=== PATIENT | female | born 2000 | race African-American/Black ===

== ENCOUNTER 2018-05-14 14:31 | Emergency (ER) | payer SELFPAY ==
[2018-05-14] MEDS ORDERED: Ketorolac Tromethamine 30 MG/ML VIAL ONE (15:07)
== END 2018-05-14 16:17 | disposition home or self-care (01) ==
LOC: ERS 14:31
DX: S29.011A Strain of muscle and tendon of front wall of thorax, initial encounter (principal); N64.4 Mastodynia; F41.9 Anxiety disorder, unspecified; X58.XXXA Exposure to other specified factors, initial encounter
CPT/HCPCS: 96372; J1885

== ENCOUNTER 2018-05-15 19:30 | Emergency (ER) | payer SELFPAY | END 2018-05-15 20:52 | disposition home or self-care (01) | LOC: ERS 19:30 | DX: N63.0 Unspecified lump in unspecified breast (principal); F41.9 Anxiety disorder, unspecified | CPT/HCPCS: 99283 ==

== ENCOUNTER 2018-10-25 17:41 | Emergency (ER) | payer SELFPAY ==
[2018-10-25] MEDS ORDERED: Ibuprofen 800 MG TAB ONE (17:53)
--- NOTE | 2018-10-25 18:03 | RAD ---
EXAM: 2 views of the right tibia/fibula HISTORY: Leg pain COMPARISON: None FINDINGS: There is no evidence of acute fracture or dislocation. No soft tissue swelling is seen. No degenerative changes are seen in the knee or ankle. IMPRESSION: No evidence of acute osseous abnormality.
== END 2018-10-25 18:24 | disposition home or self-care (01) ==
LOC: ERS 17:41
DX: S80.11XA Contusion of right lower leg, initial encounter (principal); F41.9 Anxiety disorder, unspecified; V43.62XA Car passenger injured in collision with other type car in traffic accident, initial encounter

== ENCOUNTER 2018-10-28 08:36 | Emergency (ER) | payer SELFPAY ==
[2018-10-28 09:57] LABS: Bacteria/HPF 1+ HPF (None Seen); Bilirubin Negative (Negative); Blood, Urine 1+ (Negative); Clarity Turbid (Clear); Glucose, Urine (Dipstick) Normal (Negative); Leukocyte Negative Leu/uL (Negative); Nitrite Negative (Negative); Protein, Urine (Dipstick) Negative (Neg-Trace); Squamous Epithelial 0-3 HPF (0-3); Urobilinogen Normal mg/dL (Less than 2); Yeast-Budding 2+ HPF (None Seen)
[2018-10-28 09:59] LABS: Pregnancy Test - Urine (BHCG) Negative (Negative); Pregu Control Background? CLEAR/WHITE (CLR/WHITE); Pregu Control Bar Appear? YES (CONTROL BAR); Specific Gravity 1.025 (1.002-1.036)
== END 2018-10-28 10:28 | disposition home or self-care (01) ==
LOC: ERS 08:36
DX: N93.9 Abnormal uterine and vaginal bleeding, unspecified (principal); M79.604 Pain in right leg; F41.9 Anxiety disorder, unspecified; V89.2XXA Person injured in unspecified motor-vehicle accident, traffic, initial encounter
CPT/HCPCS: 81003; 81025; 99284

== ENCOUNTER 2018-11-24 18:48 | Emergency (ER) | payer OTHER, SELFPAY ==
[2018-11-24] MEDS ORDERED: Ondansetron ODT 4 MG TAB ONE (19:29)
[2018-11-24 20:22] LABS: Bacteria/HPF 3+ HPF (None Seen); Bilirubin Negative (Negative); Blood, Urine Negative (Negative); Clarity Turbid (Clear); Glucose, Urine (Dipstick) Normal (Negative); Leukocyte 25 Leu/uL (Negative); Nitrite 2+ (Negative); Protein, Urine (Dipstick) 20 mg/dL (Neg-Trace); Urobilinogen 3 mg/dL (Less than 2)
[2018-11-24 20:25] LABS: Pregnancy Test - Urine (BHCG) Negative (Negative); Pregu Control Background? CLEAR/WHITE (CLR/WHITE); Pregu Control Bar Appear? YES (CONTROL BAR); Specific Gravity 1.026 (1.002-1.036)
[2018-11-24 21:13] LABS: ALT (SGPT) Less than 7 U/L (8-55); AST (SGOT) 13 U/L (5-34); Albumin 4.1 g/dL (3.5-5.0); Alkaline Phosphatase 52 U/L (40-150); Anion Gap 9 mmol/L (10-20); BUN (Urea Nitrogen) 12 mg/dL (7.0-18.7); Bilirubin, Total 0.6 mg/dL (0.2-1.2); Calc. Creatinine Clearance 0 mL/min (70-130); Calcium 9.2 mg/dL (7.8-10.44); Carbon Dioxide 26 mmol/L (22-29); Chloride 105 mmol/L (98-107); Estimated GFR-MDRD Greater than 90; Globulin 2.6 g/dL (2.4-3.5); Glucose 67 mg/dL (70-105); Lipase 17 U/L (8-78); Potassium 3.5 mmol/L (3.5-5.1); Protein, Total 6.7 g/dL (6.0-8.3); Sodium 136 mmol/L (136-145)
[2018-11-24 21:15] LABS: Band 3 % (5-11); Hemoglobin 11.7 g/dL (12.0-16.0); Lymphocytes 61 % (28-48); MDiff Complete? YES; Mean Corpuscular HGB CONC 32.9 g/dL (32.0-36.0); Mean Corpuscular Hemoglobin 24.9 pg (25.0-35.0); Mean Corpuscular Volume 75.7 fL (78.0-98.0); Mean Platelet Volume 8.3 fL (7.4-10.4); Monocytes 9 % (0-4); Neutrophil 27 % (31-61); Platelet Count 193 thou/uL (130-400); Red Blood Cell (RBC) Count 4.71 mill/uL (4.00-5.20); White Blood Cell (WBC) Count 4.9 thou/uL (4.8-10.8)
== END 2018-11-24 22:18 | disposition home or self-care (01) ==
LOC: ERS 18:48
DX: R11.2 Nausea with vomiting, unspecified (principal)
CPT/HCPCS: 36415; 80053; 81003; 81015; 81025; 83690; 85025; 96360; Q0162

== ENCOUNTER 2018-12-13 18:33 | Emergency (ER) | payer SELFPAY ==
--- NOTE | 2018-12-13 19:19 | RAD ---
CHEST ONE VIEW: 12/13/18 INDICATION: History of weakness after giving plasma with chest pain. COMPARISON: None. FINDINGS: Lungs are clear. Heart size is normal. No acute osseous abnormality is evident. IMPRESSION: No acute cardiopulmonary abnormality. POS: [facility]
[2018-12-13 19:24] LABS: Hemoglobin 12.5 g/dL (12.0-16.0); Mean Corpuscular HGB CONC 33.3 g/dL (32.0-36.0); Mean Corpuscular Hemoglobin 25.3 pg (25.0-35.0); Mean Corpuscular Volume 75.9 fL (78.0-98.0); Mean Platelet Volume 8.8 fL (7.4-10.4); Platelet Count 184 thou/uL (130-400); RBC Distribution Width 12.8 % (11.5-14.5); Red Blood Cell (RBC) Count 4.96 mill/uL (4.00-5.20); White Blood Cell (WBC) Count 6.3 thou/uL (4.8-10.8)
[2018-12-13 19:25] LABS: BHCG - Serum Negative (NEGATIVE); Pregs Control Background? CLEAR/WHITE (CLR/WHITE); Pregs Control Bar Appear? YES (CONTROL BAR)
[2018-12-13 19:40] LABS: ALT (SGPT) Less than 7 U/L (8-55); AST (SGOT) 14 U/L (5-34); Alkaline Phosphatase 49 U/L (40-150); Anion Gap 12 mmol/L (10-20); BUN (Urea Nitrogen) 11 mg/dL (7.0-18.7); Bilirubin, Total 0.3 mg/dL (0.2-1.2); CK (CPK) 146 U/L (29-168); Calc. Creatinine Clearance 0 mL/min (70-130); Calcium 8.9 mg/dL (7.8-10.44); Carbon Dioxide 23 mmol/L (22-29); Chloride 104 mmol/L (98-107); Estimated GFR-MDRD Greater than 90; Globulin 2.3 g/dL (2.4-3.5); Glucose 79 mg/dL (70-105); Lipase 7 U/L (8-78); Potassium 3.6 mmol/L (3.5-5.1); Protein, Total 6.3 g/dL (6.0-8.3); Sodium 135 mmol/L (136-145)
[2018-12-13 19:51] LABS: Band 4 % (5-11); Eosinophils 2 % (0-10); Lymphocytes 38 % (28-48); MDiff Complete? YES; Monocytes 7 % (0-4); Neutrophil 32 % (31-61); Ovalocytes SLIGHT = 2-5 cells (100X) (0-1/hpf); Platelet Morphology Comment Appears Adequate; Polychromasia SLIGHT = 2-3 cells (100X) (0-2/hpf); Reactive Lymphocytes 17 % (0-10)
[2018-12-13 21:52] LABS: Bilirubin Negative (Negative); Blood, Urine 1+ (Negative); Clarity Turbid (Clear); Glucose, Urine (Dipstick) Normal (Negative); Leukocyte 500 Leu/uL (Negative); Nitrite Negative (Negative); Protein, Urine (Dipstick) 10 mg/dL (Neg-Trace); Urobilinogen 3 mg/dL (Less than 2); WBC/HPF Greater than 50 HPF (0-3)
[2018-12-13 22:03] LABS: Renal Epithelial None Seen HPF (None Seen)
[2018-12-13 22:04] LABS: Bacteria/HPF 4+ HPF (None Seen)
[2018-12-13] MEDS ORDERED: Ketorolac Tromethamine 60 MG/2 ML VIAL ONE (22:21)
--- NOTE | 2018-12-17 13:40 | EKG ---
Test Reason : Blood Pressure : / mmHG Vent. Rate : 099 BPM Atrial Rate : 099 BPM P-R Int : 142 ms QRS Dur : 074 ms QT Int : 332 ms P-R-T Axes : 082 093 062 degrees QTc Int : 426 ms Normal sinus rhythm with sinus arrhythmia Possible Left atrial enlargement Rightward axis Borderline ECG Confirmed by MIRIAM URRUTIA, EPIFANIO ([id number]), editor book ESTEFANI FERRER ([id number]) on 12/17/2018 1:40:16 PM Referred By: Confirmed By:EPIFANIO PINEDA MD
== END 2018-12-13 22:56 | disposition home or self-care (01) ==
LOC: ERS 18:33
DX: R09.1 Pleurisy (principal); N39.0 Urinary tract infection, site not specified
CPT/HCPCS: 36415; 71045; 80053; 81003; 81015; 82550; 83690; 84484; 84703; 85025; 87077; 87086; 87186; 93005; 96372; J1885

== ENCOUNTER 2019-03-13 12:31 | Emergency (ER) | payer SELFPAY | END 2019-03-13 13:39 | disposition home or self-care (01) | LOC: ERS 12:31 | DX: S39.012A Strain of muscle, fascia and tendon of lower back, initial encounter (principal); V89.2XXA Person injured in unspecified motor-vehicle accident, traffic, initial encounter | CPT/HCPCS: 99283 ==

== ENCOUNTER 2019-06-14 10:29 | Emergency (ER) | payer SELFPAY ==
[2019-06-14] MEDS ORDERED: Cyclobenzaprine 10 MG TAB ONE (12:15)
[2019-06-14] MEDS ORDERED: Ketorolac Tromethamine 30 MG/ML VIAL ONE (12:15)
--- NOTE | 2019-06-14 13:59 | RAD ---
LUMBAR SPINE SERIES 3 VIEWS: Date: 06/14/2019 HISTORY: Chronic low back pain. FINDINGS: Vertebral bodies and disc spaces are well preserved. Pedicles are intact. No spondylolisthesis. No de finite pars defects visualized. IMPRESSION: Unremarkable lumbar spine series. POS: [facility]
== END 2019-06-14 12:58 | disposition home or self-care (01) ==
LOC: ERS 10:29
DX: M62.830 Muscle spasm of back (principal)
CPT/HCPCS: 72100; 96372; J1885

== ENCOUNTER 2021-05-01 14:54 | Emergency (ER) | payer SELFPAY ==
[2021-05-01] MEDS ORDERED: Ondansetron ODT 4 MG TAB ONE (16:31)
[2021-05-01 17:01] LABS: Bacteria/HPF None Seen HPF (None Seen); Bilirubin Negative (Negative); Blood, Urine Negative (Negative); Clarity Turbid (Clear); Glucose, Urine (Dipstick) Normal (Negative); Ketone, Urine Negative (Negative); Leukocyte 25 Leu/uL (Negative); Nitrite Negative (Negative); Pregnancy Test - Urine (BHCG) POSITIVE (Negative); Pregu Control Background? CLEAR/WHITE (CLR/WHITE); Pregu Control Bar Appear? YES (CONTROL BAR); Protein, Urine (Dipstick) Negative (Neg-Trace); RBC/HPF 0-3 HPF (0-3); Specific Gravity 1.018 (1.002-1.036); Specific Gravity, Urine 1.018 (1.002-1.036); Urobilinogen Normal mg/dL (Less than 2); WBC/HPF 0-3 HPF (0-3)
== END 2021-05-01 17:45 | disposition home or self-care (01) ==
LOC: ERS 14:54
DX: O21.0 Mild hyperemesis gravidarum (principal); Z3A.08 8 weeks gestation of pregnancy; Z79.899 Other long term (current) drug therapy
CPT/HCPCS: 81003; 81015; 81025; 99284; Q0162